=== PATIENT | male | born 1950 | race Caucasian/White ===

== ENCOUNTER 2023-06-17 06:23 | Day surgery (SDC) | payer MEDICARE, SELFPAY ==
[2023-06-17] VITALS (7 sets, daily range): BP systolic 125–131; BP diastolic 65–76; BMI 30.9
[2023-06-17] MEDS: NORMOSOL-R 1000 IV (09:42)
[2023-06-17] MEDS: CYSVIEW KIT 100 MG INTRAVES (09:50)
[2023-06-17] MEDS: Pyridium 200 MG PO (12:39)
== END 2023-06-17 14:15 | disposition home or self-care (01) ==
LOC: SDS 06:23
PROVIDERS: ATTENDING PHYSICIAN Urology
DX: C67.4 Malignant neoplasm of posterior wall of bladder (principal)
CPT/HCPCS: 52235; C9738; 88307; 93005; A9589

== ENCOUNTER → 2023-10-11 13:54 | Outpatient (REF) | payer MEDICARE, SELFPAY ==
[2023-10-13 17:15] LABS: PSA Total 10.3 ng/mL (0.0-4.0)
== END ==
LOC: REG 13:54
PROVIDERS: ATTENDING PHYSICIAN Urology; FAMILY PHYSICIAN Family Medicine
DX: R97.20 Elevated prostate specific antigen [PSA] (principal)
CPT/HCPCS: 36415; 84153; 84154

== ENCOUNTER → 2023-10-12 12:46 | Outpatient (REF) | payer MEDICARE, SELFPAY | LOC: CLAB 12:46 | PROVIDERS: ATTENDING PHYSICIAN Urology | DX: D49.4 Neoplasm of unspecified behavior of bladder (principal) | CPT/HCPCS: 88112 ==

== ENCOUNTER → 2024-01-31 16:04 | Outpatient (REF) | payer MEDICARE, SELFPAY | LOC: REG 16:04 | PROVIDERS: ATTENDING PHYSICIAN Urology; FAMILY PHYSICIAN Family Medicine | DX: R97.20 Elevated prostate specific antigen [PSA] (principal) | CPT/HCPCS: 36415; 84153 ==

== ENCOUNTER → 2024-03-15 09:52 | Outpatient (REF) | payer MEDICARE, SELFPAY | LOC: MRI 3T 09:52 | PROVIDERS: ATTENDING PHYSICIAN Urology; FAMILY PHYSICIAN Family Medicine | DX: R97.20 Elevated prostate specific antigen [PSA] (principal) | CPT/HCPCS: 72197; A9575 ==

== ENCOUNTER → 2024-05-16 14:02 | Outpatient (REF) | payer MEDICARE, SELFPAY | LOC: CLAB 14:02 | PROVIDERS: ATTENDING PHYSICIAN Urology | DX: C67.9 Malignant neoplasm of bladder, unspecified (principal); R97.20 Elevated prostate specific antigen [PSA] | CPT/HCPCS: 88312; 88112; 88305; 88344 ==

== ENCOUNTER → 2024-08-07 13:14 | Outpatient (REF) | payer MEDICARE, SELFPAY ==
[2024-08-07 13:53] LABS: % Basophils 1.4 % (0-2); % Eosinophils 3.4 % (0-6); % Immature Granulocytes 0.3 % (0-0.5); % Lymphocytes 22.6 % (20.5-51.1); % Monocytes 6.3 % (1.7-9.3); Absolute Basophils 0.1 10^3/uL (0-0.2); Absolute Eosinophils 0.2 10^3/uL (0-0.7); Absolute Lymphocytes 1.4 10^3/uL (1.2-3.4); Absolute Monocytes 0.4 10^3/uL (0.1-0.6); Absolute Neutrophils 4.1 10^3/uL (1.4-6.5); Hematocrit 46.7 % (39.0-52.0); Hemoglobin 15.2 g/dL (13.0-18.0); Mean Corp Hgb Conc. 32.5 g/dL (33.0-37.0); Mean Corpuscular Hgb 27.1 pg (27.0-31.0); Mean Corpuscular Volume 83.2 fL (80.0-94.0); Mean Platelet Volume 9.1 fL (7.4-10.4); Nucleated Red Blood Cells % 0 % (-); Platelet Count 192 10^3/uL (130-400); Red Blood Cell Count 5.61 10^6/uL (4.70-6.10); Red Cell Dist. Width 14.3 % (11.5-14.5); White Blood Cell Count 6.2 10^3/uL (4.8-10.8)
[2024-08-07 14:24] LABS: Blood Urea Nitrogen 17 mg/dl (9-20); Calcium 9.1 mg/dl (8.4-10.2); Carbon Dioxide 25 mmol/L (22-30); Chloride 110 mmol/L (98-107); Glucose 95 mg/dl (70-99); Potassium 4.7 mmol/L (3.5-5.1); Sodium 143 mmol/L (135-145); eGFR > 60.00
[2024-08-07 14:55] LABS: PSA, Total - Diagnostic 8.15 ng/ml (0.0-4.0)
== END ==
LOC: REG 13:14
PROVIDERS: ATTENDING PHYSICIAN Urology; FAMILY PHYSICIAN Family Medicine
DX: R97.20 Elevated prostate specific antigen [PSA] (principal); C67.9 Malignant neoplasm of bladder, unspecified
CPT/HCPCS: 36415; 80048; 84153; 85025

== ENCOUNTER → 2024-08-11 11:17 | Outpatient (REF) | payer MEDICARE, SELFPAY | LOC: RAD 11:17 | PROVIDERS: ATTENDING PHYSICIAN Urology; FAMILY PHYSICIAN Family Medicine | DX: D49.4 Neoplasm of unspecified behavior of bladder (principal) | CPT/HCPCS: 74178; Q9967 ==

== ENCOUNTER → 2024-08-15 13:59 | Outpatient (REF) | payer MEDICARE, SELFPAY | LOC: CLAB 13:59 | PROVIDERS: ATTENDING PHYSICIAN Urology | DX: C67.9 Malignant neoplasm of bladder, unspecified (principal) | CPT/HCPCS: 88112 ==